=== PATIENT | female | born 2000 | race Two or more races ===

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

== ENCOUNTER 2023-02-15 17:13 | Emergency (ER) | payer OTHER ==
[~2023-02-15] VITALS: Ht 165.1 cm; Wt 47.2 kg
[2023-02-15] MEDS ORDERED: DIALYVITE 800-1 EACH PO (18:20)
[2023-02-15 19:16] LABS: HEMATOCRIT 31.2 % (36.0-45.00); HEMOGLOBIN 10.7 g/dL (12.0-15.00); MEAN CELL VOLUME 82.3 fL (80.00-100.00); MEAN CORPUSCULAR HEMOGLOBIN 28.4 pg (27.00-32.0); MEAN CORPUSCULAR HGB CONC 34.5 g/dl (32.0-36.0); PLATELET COUNT 168 K/uL (150-450); RED BLOOD COUNT 3.79 M/uL (4.00-6.00); RED CELL DISTRIBUTION WIDTH 13.4 % (11.5-14.5)
[2023-02-15] MEDS ORDERED: ZITHROMAX500 MG PO (22:28)
[2023-02-15] MEDS ORDERED: TUSSIN100 MG/51 PO (22:28)
[2023-02-15] MEDS ORDERED: ZYRTEC10 MG PO (22:28)
== END 2023-02-15 19:57 | disposition left against medical advice (07) ==
LOC: ER 17:13
PROVIDERS: General Practice
DX: O98.511 Other viral diseases complicating pregnancy, first trimester (principal); B34.9 Viral infection, unspecified; Z3A.09 9 weeks gestation of pregnancy; Z20.822 Contact with and (suspected) exposure to COVID-19

== ENCOUNTER 2023-02-15 21:56 | Emergency (ER) | payer OTHER ==
[~2023-02-15] VITALS: Ht 165.1 cm; Wt 47.2 kg
[~2023-02-15 21:56] MED LIST: DIALYVITE 800-1 EACH PO
[2023-02-15] MEDS ORDERED: ZITHROMAX500 MG PO (22:28)
[2023-02-15] MEDS ORDERED: ZYRTEC10 MG PO (22:28)
[2023-02-15] MEDS ORDERED: TUSSIN100 MG/51 PO (22:28)
== END 2023-02-15 22:35 | disposition home or self-care (01) ==
LOC: ER 21:56
DX: O99.511 Diseases of the respiratory system complicating pregnancy, first trimester (principal); J06.9 Acute upper respiratory infection, unspecified; Z3A.10 10 weeks gestation of pregnancy

== ENCOUNTER 2023-04-24 15:27 | Outpatient (CLI) | payer OTHER ==
[~2023-04-24 15:27] MED LIST changes: +TUSSIN100 MG/51 PO; +ZITHROMAX500 MG PO; +ZYRTEC10 MG PO
== END 2023-04-24 15:29 | disposition home or self-care (01) ==
LOC: PRENATAL 15:27
PROVIDERS: ATTEND Obstetrics & Gynecology Maternal & Fetal Medicine
DX: O35.3XX0 Maternal care for (suspected) damage to fetus from viral disease in mother, not applicable or unspecified (principal); O44.00 Complete placenta previa NOS or without hemorrhage, unspecified trimester; Z3A.20 20 weeks gestation of pregnancy

== ENCOUNTER → 2023-06-19 12:48 | Outpatient (CLI) | payer OTHER | END | disposition home or self-care (01) | LOC: PRENATAL 12:48 | PROVIDERS: ATTEND Obstetrics & Gynecology Maternal & Fetal Medicine | DX: O26.849 Uterine size-date discrepancy, unspecified trimester (principal); O99.019 Anemia complicating pregnancy, unspecified trimester; Z3A.28 28 weeks gestation of pregnancy ==

== ENCOUNTER 2023-07-14 19:49 | Emergency (ER) | payer OTHER ==
[~2023-07-14] VITALS: Ht 165.1 cm; Wt 52.6 kg
[2023-07-14] MEDS ORDERED: IRON236 MG PO (20:05)
[2023-07-14 21:08] LABS: HEMATOCRIT 31.2 % (36.0-45.00); HEMOGLOBIN 10.8 g/dL (12.0-15.00); MEAN CELL VOLUME 84.9 fL (80.00-100.00); MEAN CORPUSCULAR HEMOGLOBIN 29.4 pg (27.00-32.0); MEAN CORPUSCULAR HGB CONC 34.7 g/dl (32.0-36.0); PLATELET COUNT 186 K/uL (150-450); RED BLOOD COUNT 3.67 M/uL (4.00-6.00); RED CELL DISTRIBUTION WIDTH 13.6 % (11.5-14.5)
[2023-07-14 21:09] LABS: URINE APPEARANCE Cloudy; URINE BILIRRUBIN Negative (NEGATIVE); URINE BLOOD Negative; URINE COLOR Yellow; URINE GLUCOSE Negative (NEGATIVE); URINE LEUKOCYTE Moderate; URINE NITRATE Negative; URINE PROTEIN Negative (NEGATIVE)
[2023-07-14 21:13] LABS: URINE BACTERIA 2019.6 uL (0.0-1933); URINE EPITHELIAL CELLS 55.1 uL (0.0-38.8); URINE WBC 135.4 uL (0.0-23.2)
[2023-07-14 21:14] LABS: URINE RBC 0.7 uL (0.0-20.8)
[2023-07-14 21:21] LABS: INR 0.95
[2023-07-14 21:24] LABS: CALCIUM 9.1 mg/dL (8.5-10.1); CREATININE SERUM 0.67 mg/dL (0.55-1.02); GFR 111.11; POTASSIUM 3.86 mEq/L (3.5-5.1)
== END 2023-07-14 21:57 | disposition home or self-care (01) ==
LOC: ER 19:49
PROVIDERS: General Practice
DX: O23.43 Unspecified infection of urinary tract in pregnancy, third trimester (principal); N39.0 Urinary tract infection, site not specified; Z3A.31 31 weeks gestation of pregnancy; Z20.822 Contact with and (suspected) exposure to COVID-19

== ENCOUNTER 2023-07-17 11:19 | Outpatient (CLI) | payer OTHER ==
[~2023-07-17 11:19] MED LIST changes: +IRON236 MG PO
== END 2023-07-17 11:20 | disposition home or self-care (01) ==
LOC: PRENATAL 11:19
PROVIDERS: ATTEND Obstetrics & Gynecology Maternal & Fetal Medicine
DX: O26.849 Uterine size-date discrepancy, unspecified trimester (principal); O36.8199 Decreased fetal movements, unspecified trimester, other fetus; O99.019 Anemia complicating pregnancy, unspecified trimester; Z3A.32 32 weeks gestation of pregnancy

== ENCOUNTER 2024-12-11 20:29 | Outpatient (CLI) | payer OTHER ==
[2024-12-11 20:22] VITALS: BP 108/66
[~2024-12-11 20:29] MED LIST changes: +IRON325 MG PO; +PRENATAL TABLE1 EAC1 PO
[2024-12-11] MEDS ORDERED: RINGERS SOLUTION,LACTATED 1,000 ML IV SCH (21:00)
[2024-12-11 21:41] LABS: BASO % 0.1 % (0.1-1.2); EOS # 0.03 (0.04-0.54); EOS % 0.3 % (0.7-7.0); LYMPH # 1.63 (1.18-3.74); LYMPH % 17.7 % (19.3-53.1); MEAN PLATELET VOLUME 12.10 fl (9.4-12.4); MONO # 0.33 (0.24-0.82); MONO % 3.6 % (4.7-12.5); NEUT # 7.19 (1.56-6.13); NEUT % 78.0 % (34.0-71.1); RED CELL DISTRIBUTION WIDTH 13.6 % (11.6-14.4)
[2024-12-11 21:49] LABS: URINE APPEARANCE Clear; URINE BILIRRUBIN Negative (NEGATIVE); URINE BLOOD Negative; URINE COLOR Yellow; URINE GLUCOSE Negative (NEGATIVE); URINE LEUKOCYTE Small; URINE NITRATE Negative; URINE PROTEIN Negative (NEGATIVE); URINE UROBILINOGEN 0.2 E.U./dl
[2024-12-11 21:50] LABS: URINE BACTERIA 730.7 uL (0.0-1933); URINE EPITHELIAL CELLS 54.9 uL (0.0-38.8); URINE WBC 81.3 uL (0.0-23.2)
[2024-12-11 21:58] LABS: INR 0.97
[2024-12-11 22:20] LABS: URINE CAST 0.58 uL (0.0-1.40); URINE KETONE 80 (NEGATIVE); URINE RBC 0.5 uL (0.0-20.8)
[2024-12-11 22:21] LABS: TYPE CELLS SQUAMOUS; URINE MUCUS SCANT
[2024-12-11 23:15] VITALS: BP 93/55
[2024-12-12 03:47] VITALS: BP 97/58
[2024-12-12 07:18] VITALS: BP 93/54
[2024-12-12 11:05] VITALS: BP 99/55
[2024-12-12 13:20] VITALS: BP 96/58
== END 2024-12-12 13:28 | disposition home or self-care (01) ==
LOC: OBS/DEL 20:29
PROVIDERS: ATTEND Obstetrics & Gynecology
DX: O23.42 Unspecified infection of urinary tract in pregnancy, second trimester (principal); N39.0 Urinary tract infection, site not specified; R10.2 Pelvic and perineal pain; Z3A.26 26 weeks gestation of pregnancy

== ENCOUNTER 2024-12-18 08:48 | Outpatient (CLI) | payer OTHER | END 2024-12-18 08:52 | disposition home or self-care (01) | LOC: PRENATAL 08:48 | PROVIDERS: ATTEND Obstetrics & Gynecology Maternal & Fetal Medicine | DX: O26.849 Uterine size-date discrepancy, unspecified trimester (principal); O36.8199 Decreased fetal movements, unspecified trimester, other fetus; O43.90 Unspecified placental disorder, unspecified trimester; O36.1999 Maternal care for other isoimmunization, unspecified trimester, other fetus; O36.5990 Maternal care for other known or suspected poor fetal growth, unspecified trimester, not applicable or unspecified; O99.019 Anemia complicating pregnancy, unspecified trimester; Z3A.26 26 weeks gestation of pregnancy ==

== ENCOUNTER → 2025-01-05 09:42 | Outpatient (CLI) | payer OTHER | END | disposition home or self-care (01) | LOC: PRENATAL 09:42 | PROVIDERS: ATTEND Obstetrics & Gynecology Maternal & Fetal Medicine | DX: O36.8130 Decreased fetal movements, third trimester, not applicable or unspecified (principal); O43.90 Unspecified placental disorder, unspecified trimester; O36.1999 Maternal care for other isoimmunization, unspecified trimester, other fetus; O36.5990 Maternal care for other known or suspected poor fetal growth, unspecified trimester, not applicable or unspecified; O99.019 Anemia complicating pregnancy, unspecified trimester; Z3A.29 29 weeks gestation of pregnancy ==

== ENCOUNTER 2025-01-13 19:59 | Inpatient (IN) | payer OTHER ==
[~2025-01-13] VITALS: Ht 165.1 cm; Wt 51.7 kg
[2025-01-13 18:52] VITALS: BP 100/61
[2025-01-13] MEDS ORDERED: BETAMETHASONE ACETATE,SOD PHOS 30 MG/5 ML ML ONE (20:14)
[2025-01-13] MEDS ORDERED: RINGERS SOLUTION,LACTATED 1,000 ML IV SCH (20:45)
[2025-01-13] MEDS ORDERED: BETAMETHASONE ACETATE,SOD PHOS 30 MG/5 ML ML IM ONE (20:45)
[2025-01-13 21:17] LABS: BASO % 0.2 % (0.1-1.2); EOS # 0.03 (0.04-0.54); EOS % 0.3 % (0.7-7.0); LYMPH # 1.29 (1.18-3.74); LYMPH % 13.6 % (19.3-53.1); MEAN PLATELET VOLUME 11.80 fl (9.4-12.4); MONO # 0.40 (0.24-0.82); MONO % 4.2 % (4.7-12.5); NEUT # 7.73 (1.56-6.13); NEUT % 81.5 % (34.0-71.1); RED CELL DISTRIBUTION WIDTH 13.3 % (11.6-14.4)
[2025-01-13 21:19] LABS: URINE APPEARANCE Clear; URINE BILIRRUBIN Negative (NEGATIVE); URINE BLOOD Moderate; URINE COLOR Dark Yellow; URINE GLUCOSE Negative (NEGATIVE); URINE KETONE 15 (NEGATIVE); URINE LEUKOCYTE Small; URINE NITRATE Negative; URINE PROTEIN Trace (NEGATIVE); URINE UROBILINOGEN 1.0 E.U./dl
[2025-01-13 21:23] LABS: URINE BACTERIA 894.0 uL (0.0-1933); URINE EPITHELIAL CELLS 46.3 uL (0.0-38.8); URINE RBC 4.6 uL (0.0-20.8); URINE WBC 90.6 uL (0.0-23.2)
[2025-01-13 21:42] LABS: INR 0.98
[2025-01-13 21:47] LABS: URINE CAST 0.43 uL (0.0-1.40); URINE CRYSTALS FEW /HPF
[2025-01-13 21:48] LABS: TYPE CELLS SQUAMOUS; URINE MUCUS MODERATE
[2025-01-13] MEDS ORDERED: CEFAZOLIN SODIUM 1,000 MG VIAL IV SCH (22:30)
[2025-01-13 23:28] VITALS: BP 104/67; O2SAT 98
[2025-01-14] VITALS (9 sets, daily range): BP systolic 85–127; BP diastolic 57–76; O2SAT 100
[2025-01-14] MEDS ORDERED: OXYTOCIN 10 UNITS/ML VIAL ONE (06:52)
[2025-01-14] MEDS ORDERED: CHLORHEXIDINE GLUCONATE 120 ML BOTTLE TOP ONE ×2 (06:52→08:15)
[2025-01-14] MEDS ORDERED: LIDOCAINE HCL 1% 10ML VIAL ONE (06:52)
[2025-01-14] MEDS ORDERED: ERYTHROMYCIN BASE OPHT 1GM EACH TUBE OP ONE ×2 (06:52→08:15)
[2025-01-14] MEDS ORDERED: OXYTOCIN 1,000 ML IV SCH (08:15)
[2025-01-14] MEDS ORDERED: PNV,CALCIUM 72/IRON/FOLIC ACID 1 TAB TABLET PO SCH (09:00)
[2025-01-14 18:03] LABS: BASO % 0.2 % (0.1-1.2); EOS # 0.00 (0.04-0.54); EOS % 0.0 % (0.7-7.0); LYMPH # 0.90 (1.18-3.74); LYMPH % 5.2 % (19.3-53.1); MEAN PLATELET VOLUME 12.50 fl (9.4-12.4); MONO # 0.49 (0.24-0.82); MONO % 2.8 % (4.7-12.5); NEUT # 15.72 (1.56-6.13); NEUT % 91.2 % (34.0-71.1); RED CELL DISTRIBUTION WIDTH 13.3 % (11.6-14.4)
[2025-01-14] MEDS ORDERED: BETAMETHASONE ACETATE,SOD PHOS 30 MG/5 ML ML IM ONE (20:45)
[2025-01-15 00:33] VITALS: BP 100/62
[2025-01-15 08:00] VITALS: BP 112/73
[2025-01-15 18:10] VITALS: BP 106/66
[2025-01-16] VITALS: BP 98/64
[2025-01-16 08:00] VITALS: BP 106/60
== END 2025-01-16 17:59 | disposition home or self-care (01) | DRG 805 ==
LOC: OBS/DEL 19:59 → OB/GYN 01-14 06:03 → OBS/DEL 01-14 06:03 → LDR 01-14 06:03 → OB/GYN 01-14 08:11
PROVIDERS: ADMIT Obstetrics & Gynecology; ATTEND Obstetrics & Gynecology
PROC: 10E0XZZ Delivery of Products of Conception, External Approach (ICD-10-PCS; principal; 2025-01-14)
PROC: 4A1HXCZ Monitoring of Products of Conception, Cardiac Rate, External Approach (ICD-10-PCS; 2025-01-14)
DX: O36.5930 Maternal care for other known or suspected poor fetal growth, third trimester, not applicable or unspecified (principal); O60.14X0 Preterm labor third trimester with preterm delivery third trimester, not applicable or unspecified; Z37.0 Single live birth; O67.8 Other intrapartum hemorrhage; O42.013 Preterm premature rupture of membranes, onset of labor within 24 hours of rupture, third trimester; O26.893 Other specified pregnancy related conditions, third trimester; N93.0 Postcoital and contact bleeding; Z3A.31 31 weeks gestation of pregnancy